=== PATIENT | female | born 1990 | race Two or more races ===

== ENCOUNTER 2018-03-26 02:43 | Emergency (ER) | payer BC ==
[~2018-03-26] VITALS: Ht 170.2 cm; Wt 75.7 kg
[2018-03-26] MEDS ORDERED: AMOXICILLIN500 MG PO (04:15)
[2018-03-26 04:55] VITALS: BP 121/79
== END 2018-03-26 04:57 | disposition home or self-care (01) ==
LOC: EME 02:43
DX: J02.9 Acute pharyngitis, unspecified (principal); R50.81 Fever presenting with conditions classified elsewhere
CPT/HCPCS: 99281; 99284